=== PATIENT | male | born 1980 | race Two or more races ===

== ENCOUNTER 2020-08-16 11:54 | Emergency (ER) | payer MEDICAID, SELFPAY ==
[2020-08-16 14:09] VITALS: BP 141/72; PULSE 97; RESP 18; TEMP 37.7; O2SAT 98; BMI 23.3
--- NOTE | 2020-08-16 14:29 | ED_ITS ---
HPI - URI/Sore Throat General Chief Complaint: Upper Respiratory Symptoms Stated Complaint: CONGESTION Time Seen by Provider: 08/16/20 14:28 Source: patient Mode of arrival: ambulatory Limitations: no limitations History of Present Illness MD elicited complaint: rhinorrhea and nasal congestion Onset (ago): day(s) (Since last night) Severity: mild Description of mucous: watery Relieving factors: nothing Associated symptoms: denies other symptoms Treatments prior to arrival: none Related Data Allergies Allergy/AdvReac Type Severity Reaction Status Date / Time No Known Allergies Allergy Unverified 06/03/20 19:12 Review of Systems Review of Systems: Constitutional: No Weight loss, No Fever, No Chills, No Night Sweats, No Fatigue, No Malaise ENT/Mouth: No Hearing loss, No Ear Pain, + Nasal Congestion, No Sinus Pain, No Hoarseness, No sore throat, + Rhinorrhea, No Swallowing Difficulty Eyes: No Eye Pain, No Swelling, No Redness, No Foreign Body, No Discharge, No Vision Changes Cardiovascular: No Chest Pain, No SOB, No Dyspnea on Exertion, No Orthopnea, No Edema, No Palpitations Respiratory: No Cough, No Sputum, No Wheezing, No Smoke Exposure, No Dyspnea Gastrointestinal: No Nausea, No Vomiting, No Diarrhea, No Constipation, No abdominal Pain, No Hematochezia, No Melena Genitourinary: No Flank Pain, No Urinary Flow Changes, No Hesitancy Musculoskeletal: No joint pain, No Myalgias, No Joint Swelling Skin: No Skin Lesions, No rash Neuro: No Dizziness, No Headache Psych: No Social Issues Heme/Lymph: No Bruising, No Bleeding,No Lymphadenopathy Endocrine: No Polyuria, No Polydipsia, No Temperature Intolerance Yes all other systems are reviewed and are negative [facility] Social History Social History Advance Directives: No Advance Directives Information Provided: Yes Physical Exam Vital Signs: Vital Signs: Last Vital Signs Temp 99.8 F 08/16/20 14:09 Pulse 97 08/16/20 14:09 Resp 18 08/16/20 14:09 BP 141/72 H 08/16/20 14:09 Pulse Ox 98 08/16/20 14:09 Body Mass Index 23.3 Reviewed Const: General: cooperative and healthy appearing; No acute distress or intoxicated appearing Nutritional Appearance: average body habitus Orientation/consciousness: patient oriented x3 HENMT: Head: Yes normal to inspection Ears: hearing grossly normal bilaterally General nose exam: Nasal discharge present clear, no epistaxis and no nasal polyps Eyes: General: appearance normal, both eyes and all related structures Visual Greenberg: normal visual greenberg by confrontation Neck: Neck: Yes normal visual inspection and No tender Thyroid: Thyroid normal Chest: Chest palpation & inspection: normal inspection of the chest Resp: Effort & Inspection: normal respiratory effort Cardio: Jugular venous distension: no JVD Skin: General skin exam: no rashes or lesions noted Neuro: General: patient oriented x3 Extrem: General: Yes normal to inspection Discharge Plan Discharge Clinical Impression: Upper respiratory infection Patient Disposition: Home, Self-Care Instructions: Upper Respiratory Infection (ED) Additional Instructions: Your COVID test is pending and may take up to 3-5 days results will call you with results Practice social isolation/distance [id number] nasal decongestants as reviewed Push fluids Return if any concerns or worsening symptoms otherwise follow up as instructed Thank you Referrals: [facility] [Primary Care Provider] - 1 week (Phone visit as needed)
== END 2020-08-16 15:05 | disposition home or self-care (01) ==
PROVIDERS: Nurse Practitioner Primary Care; Emergency Provider Internal Medicine
DX: J06.9 Acute upper respiratory infection, unspecified (principal); J34.89 Other specified disorders of nose and nasal sinuses; Z20.828 Contact with and (suspected) exposure to other viral communicable diseases
CPT/HCPCS: 99283; U0003

== ENCOUNTER 2020-11-18 08:05 | Emergency (ER) | payer MEDICAID, OTHER, SELFPAY ==
[2020-11-18 08:10] VITALS: BP 119/68; PULSE 101; RESP 18; TEMP 38; O2SAT 96; BMI 26.9
--- NOTE | 2020-11-18 08:16 | ED.URI ---
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 Mode of arrival: ambulatory Limitations: no limitations History of Present Illness MD elicited complaint: fever, rhinorrhea and nasal congestion Onset (ago): day(s) (3) Consistency: constant Severity: mild Description of mucous: clear Able to tolerate fluids by mouth: Yes Exacerbating factors: nothing Relieving factors: nothing Context: recent travel Associated symptoms: fever, chills, myalgias, headache and rhinorrhea Treatments prior to arrival: none Related Data Allergies Allergy/AdvReac Type Severity Reaction Status Date / Time No Known Allergies Allergy Unverified 06/03/20 19:12 Review of Systems Review of Systems: Constitutional : positive Fever, positive Chills, positive fatigue, positive Malaise ENT/Mouth : no sore throat, positive runny nose Eyes: No Discharge Cardiovascular : No Chest Pain, No SOB Respiratory : No Cough, No Sputum Gastrointestinal : No Nausea, No Vomiting, No Diarrhea Genitourinary : No Dysuria, No Urinary Frequency Musculoskeletal : positive Myalgia Skin : No rash Neuro : No Headache PMFSH Past Medical History Attestation statement: The following information was validated with the patient. Medical History (Updated 11/18/20 @ 09:19 by Felicitas Cabrales DO) Diabetes HTN (hypertension) Social History Social History (Updated 11/18/20 @ 08:33 by Felicitas Cabrales DO) Smoking Status: Never smoker Advance Directives: No Advance Directives Information Provided: No Physical Exam Vital Signs: Vital Signs: Last Vital Signs Temp 100.4 F 11/18/20 08:10 Pulse 101 H 11/18/20 08:10 Resp 18 11/18/20 08:10 BP 119/68 11/18/20 08:10 Pulse Ox 96 11/18/20 08:10 Body Mass Index 26.9 Appearance: Alert. Oriented X3. No acute distress. Eyes: Pupils equal, round and reactive to light. ENT: Pharynx normal. Active sneezing Neck: Normal inspection. Neck supple. CVS: Normal heart rate and rhythm. Pulses normal. Respiratory: No respiratory distress. Breath sounds normal. Abdomen: Soft and nontender. Skin: Skin warm and dry. Normal skin color. Normal skin turgor. Extremities: No lower extremity edema. No calf ttp Neuro: Oriented X 3. No motor deficit. No sensory deficit. Course Course Course Narrative: patient was called and notified of his POS result MDM - URI/Sore Throat MDM Narrative Medical decision making narrative: 40 yo male with viral like illness, clear lungs, no hypoxia - not toxic, will obtain COVID swab and give tylenol, discussed reasons to return Lab Data Labs: Lab Results 11/18/20 Range/Units 08:23 Coronavirus (PCR) POSITIVE A (Negative) Influenza Type A (PCR) NEGATIVE (Negative) Influenza Type B (PCR) NEGATIVE (Negative) RSV RNA Qual (PCR) NEGATIVE (Negative) Discharge Plan Discharge Clinical Impression: Viral syndrome, COVID-19 Patient Disposition: Home, Self-Care Instructions: Viral Syndrome (ED), COVID-19 (Coronavirus Disease 2019) (ED) Additional Instructions: return to ED for any worsening symptoms or concerns Interventions: ED Discharge Assessment Last Done: 11/18/20 08:36 Discharge Date/Time: 11/18/20 08:36 Print Language: [place]
[2020-11-18] MEDS: Acetaminophen 325 MG TABLET 650 MG PO (08:21)
[2020-11-18 09:08] LABS: Influenza A PCR NEGATIVE (Negative); Influenza B PCR NEGATIVE (Negative); Resp Syncy Virus RNA Qual PCR NEGATIVE (Negative)
[2020-11-18 09:16] LABS: SARS COV2 PCR INHOUSE POSITIVE (Negative)
== END 2020-11-18 08:36 | disposition home or self-care (01) ==
PROVIDERS: Emergency Provider Emergency Medicine
DX: U07.1 COVID-19 (principal); R51.9 Headache, unspecified; R50.9 Fever, unspecified; E11.9 Type 2 diabetes mellitus without complications; I10 Essential (primary) hypertension
CPT/HCPCS: 0241U; 36415; 99283

== ENCOUNTER 2021-01-04 08:50 | Emergency (ER) | payer OTHER, MEDICAID, SELFPAY ==
--- NOTE | 2021-01-04 09:24 | ED.HA ---
HPI - Headache General Chief Complaint: Headache Stated Complaint: HEADACHE Time Seen by Provider: 01/04/21 09:24 Source: patient Mode of arrival: ambulatory Limitations: language barrier History of Present Illness HPI Narrative: Patient feels hot and is worried that he has a fever. 2 months ago he tested positive for COVID. Since he had COVID he has had headaches everyday. Patient with increased headache due to allergies MD elicited complaint: headache Onset (ago): month(s) Onset description: gradually and while at rest Location: frontal Severity: mild Quality & Timing: aching Exacerbating factors: other (seasonal allergies) Related Data Previous Rx's Medication Instructions Recorded fluticasone propionate [Flonase 1 spray INTRANASAL BID #16 g 01/04/21 Allergy Relief] naproxen [Naprosyn] 500 mg PO BID #20 tab 01/04/21 Allergies Allergy/AdvReac Type Severity Reaction Status Date / Time No Known Allergies Allergy Verified 01/04/21 09:44 Review of Systems Constitutional: Constitutional: Reports no additional constitutional complaints Eyes: Eyes: Reports no additional eye complaints ENT: Denies dizziness Cardiovascular: Cardiovascular: Reports no additional cardiovascular complaints Respiratory: Respiratory: Reports as per HPI Gastrointestinal: Gastrointestinal: Reports no additional gastrointestinal complaints Musculoskeletal: Musculoskeletal: Reports no additional musculoskeletal complaints Integumentary/Breasts: Skin/Breast: Denies rash Neurologic: Reports system reviewed and no additional complaints, except as documented, Denies dizziness and Denies Sensory deficit (Neuro) Psychiatric: Psychiatric: Denies anxiety [facility] Past Medical History Medical History Diabetes HTN (hypertension) Social History Social History Smoking Status: Never smoker Advance Directives: No Advance Directives Information Provided: No Physical Exam Const: General: healthy appearing Nutritional Appearance: average body habitus Orientation/consciousness: oriented to person and patient oriented x3 Limitations: no limitations HENMT: Other: both TMs with some fluid and bubbles. Head: Yes normal to inspection Ears: external ears normal General nose exam: Normal external nose present Mouth: Normal oral and palatal mucosa present and oropharynx normal Throat: Yes posterior oropharynx normal Eyes: General: appearance normal, both eyes and all related structures Neck: Other: supple Neck: Yes normal visual inspection Chest: Chest palpation & inspection: normal inspection of the chest Resp: Auscultation: clear to auscultation bilaterally Cardio: Jugular venous distension: no JVD Rate: regular rate Rhythm: regular rhythm Heart sounds: S1 normal heart sound present and S2 normal heart sound present GI: Inspection: Yes normal to inspection Palpation (GI): Soft to palpation, nontender and No hepatosplenomegaly present Auscultation: normal bowel sounds : General: Yes no CVA tenderness Back/Spine/Pelvis: Back: no CVA tenderness Skin: General skin exam: no rashes or lesions noted Neuro: General: oriented to person and patient oriented x3 Cranial nerves: Yes CN's II-XII intact bilaterally Motor exam (neuro): 5/5 motor strength present throughout Sensory Exam: No Sensory deficit (Neuro) Extrem: General: Yes normal to inspection Psych: Appearance: grossly normal MDM - Headache MDM Narrative Medical decision making narrative: patient with allergic sinusitis causing him to have headaches will start on flonase and nsaids Differential Diagnosis Differential diagnosis: Likely sinusitis Discharge Plan Discharge Clinical Impression: Acute seasonal allergic rhinitis Sinusitis Qualifiers: Sinusitis location: frontal Chronicity: unspecified Qualified Code(s): J32.1 - Chronic frontal sinusitis Patient Disposition: Home, Self-Care Instructions: Sinusitis (ED), Allergic Rhinitis (ED) Prescriptions: New naproxen [Naprosyn] 500 mg tablet 500 mg PO BID Qty: 20 RF: 0 fluticasone propionate [Flonase Allergy Relief] 50 mcg/actuation spray,suspension 1 spray intranasal BID Qty: 16 RF: 0 Referrals: Armin Jensen MD [Primary Care Provider] - 1 week
[2021-01-04 09:36] VITALS: BP 138/90; PULSE 84; RESP 16; TEMP 36.8; O2SAT 98; BMI 25.8
[2021-01-04 09:51] LABS: Glucose, Whole Blood 222 mg/dL (60-115)
--- NOTE | 2021-01-04 09:56 | PC.NURSE ---
Pt's poc 222. MD aware. Pt educated on diet and medication compliance for control of blood sugars. Pt educated on flonaise and naprosen spray by MD with historical interpreter.
== END 2021-01-04 09:58 | disposition home or self-care (01) ==
PROVIDERS: Emergency Provider Emergency Medicine; PCP Internal Medicine
DX: J30.2 Other seasonal allergic rhinitis (principal); J32.1 Chronic frontal sinusitis; R51.9 Headache, unspecified; E11.9 Type 2 diabetes mellitus without complications; I10 Essential (primary) hypertension
CPT/HCPCS: 82947; 99283

== ENCOUNTER 2021-12-10 12:03 | Emergency (ER) | payer OTHER, SELFPAY ==
[2021-12-10 12:09] VITALS: BP 132/85; PULSE 85; RESP 19; TEMP 36.9; O2SAT 99; BMI 27.4
--- NOTE | 2021-12-10 12:30 | ED.URI ---
HPI - URI/Sore Throat General Chief Complaint: Fever Stated Complaint: Headache/fever Time Seen by Provider: 12/10/21 12:21 Source: patient Mode of arrival: ambulatory Limitations: no limitations History of Present Illness HPI Narrative: 41 yo male presents to the ER with 2 days of fevers, sore throat, nasal congestion and dry cough. He denies any sick contacts. He has been eating and drinking normally. He states he has had nasal congestion with yellow discharge, dry cough and subjective fevers. He recently had COVID. He is not vaccinated for the Flu. He denies any chest pain, SOB, difficutly breathing, N/V/D or abdominal pain. MD elicited complaint: fever, cough, sore throat and nasal congestion Onset (ago): day(s) (2) Consistency: constant Severity: moderate Description of mucous: clear, watery and yellow Able to tolerate fluids by mouth: Yes Exacerbating factors: nothing Relieving factors: nothing Associated symptoms: fever, chills, rhinorrhea, nasal congestion, sore throat and cough Treatments prior to arrival: none Related Data Previous Rx's Medication Instructions Recorded fluticasone propionate 50 1 spray INTRANASAL BID #16 g 01/04/21 mcg/actuation nasal spray,suspension (Flonase Allergy Relief) naproxen 500 mg tablet (Naprosyn) 500 mg PO BID #20 tab 01/04/21 Allergies Allergy/AdvReac Type Severity Reaction Status Date / Time No Known Allergies Allergy Verified 01/04/21 09:44 Review of Systems Review of Systems: Constitutional: + Fever, No Chills ENT/Mouth: + sore throat, No Rhinorrhea, No Swallowing Difficulty Eyes: No Eye Pain, No Swelling, No Redness Cardiovascular: No Chest Pain, No SOB, No Orthopnea, No Edema Respiratory: + Cough, No Sputum, No Wheezing, No dyspnea Gastrointestinal: No Nausea, No Vomiting, No Diarrhea, No abdominal Pain Musculoskeletal: No joint pain, No Myalgias Skin: No Skin Lesions, No rash Neuro: No Weakness, No Dizziness, No Headache Heme/Lymph: No Bruising, No Lymphadenopathy PMFSH Past Medical History Medical History Diabetes HTN (hypertension) Social History Social History Advance Directives: No Advance Directives Information Provided: No Physical Exam Vital Signs: Vital Signs: Last Vital Signs Temp 98.5 F 12/10/21 12:09 Pulse 85 12/10/21 12:09 Resp 19 12/10/21 12:09 BP 132/85 12/10/21 12:09 Pulse Ox 99 12/10/21 12:09 BMI result Body Mass Index 27.4 Appearance: Alert. Oriented X3. No acute distress. Eyes: Pupils equal, round and reactive to light. Sclera with injection bilaterally ENT: Pharynx With moist mucous membranes. Bilateral tonsillar enlargement and erythema without exudate. Uvula midline. Normal voice. Handling secretions normally. Neck: Normal inspection. Neck supple. No lymphadenopathy CVS: Normal heart rate and rhythm. Pulses normal. Respiratory: No respiratory distress. Breath sounds normal. Abdomen: Soft and nontender. +BS x4 Skin: Skin warm and dry. Normal skin color. Normal skin turgor. No rashes. Extremities: Normal inspection x4. Neuro: Oriented X 3. Grossly normal, nonfocal. Course Course Course Narrative: 41-year-old male presenting to the ER with nasal congestion, subjective fevers and sore throat along with dry cough for the last 2 days. His vital signs are normal. he is negative for influenza and strep throat. He recently had COVID-19. His symptoms are most likely due to another viral etiology - he is stable for discharge with supportive care. Encouraged follow-up with his primary care doctor as needed. Stable for DC home MDM - URI/Sore Throat Lab Data Labs: Lab Results 12/10/21 12/10/21 Range/Units 12:28 12:28 Influenza Type A (LEVAR) Negative (Negative) Influenza Type B (LEVAR) Negative (Negative) Influenza A & B Note See Note S. pyogenes GrpA LEVAR Negative (Negative) Discharge Plan Discharge Clinical Impression: Viral infection Patient Disposition: Home, Self-Care Instructions: Viral Syndrome (ED) Additional Instructions: You were negative for Flu and Strep throat. Your symptoms are due to a viral infection. Rest, drink plenty of fluids. Take over the counter cold and flu medication as needed for your symptoms. Follow up with your doctor next week. If you develop new or worsening symptoms call 911 or come back to the ER for further evaluation. Prescriptions: No Action naproxen [Naprosyn] 500 mg tablet 500 mg PO BID Qty: 20 0RF fluticasone propionate [Flonase Allergy Relief] 50 mcg/actuation spray,suspension 1 spray intranasal BID Qty: 16 0RF Rx Instructions: administer into each nostril Stand Alone Forms: Work/School Release Print Language: Citizen Of [place]
[2021-12-10 12:44] LABS: Strep A Nucleic Acid Negative (Negative)
[2021-12-10 13:16] LABS: IDNOW Serial# 08D9AD1C; Influenza A Negative (Negative); Influenza B2 Negative (Negative)
== END 2021-12-10 13:45 | disposition home or self-care (01) ==
PROVIDERS: Physician Assistant; Emergency Provider Emergency Medicine
DX: B34.9 Viral infection, unspecified (principal); J02.9 Acute pharyngitis, unspecified; R50.9 Fever, unspecified; E11.9 Type 2 diabetes mellitus without complications; I10 Essential (primary) hypertension
CPT/HCPCS: 87502; 87651; 99283

== ENCOUNTER 2022-04-06 11:49 | Emergency (ER) | payer OTHER, SELFPAY ==
--- NOTE | ~2022-04-06 | XR_ITS ---
EXAMINATION: XR CHEST CLINICAL INFORMATION: Chest pain COMPARISON: 05/25/2018 TECHNIQUE: 2 views of the chest were obtained. FINDINGS: No significant abnormality is noted involving the heart, lungs, mediastinum, bony thorax or soft tissues. Some minimal scarring or atelectasis is again seen at the left lung base. XR/XR chest 2V IMPRESSION: No acute intrathoracic disease.
--- NOTE | 2022-04-06 11:55 | ECG_ITS ---
Test Reason : CHEST PAIN Blood Pressure : / mmHG Vent. Rate : 077 BPM Atrial Rate : 077 BPM P-R Int : 192 ms QRS Dur : 084 ms QT Int : 364 ms P-R-T Axes : 055 049 029 degrees QTc Int : 411 ms Normal sinus rhythm Normal ECG No previous ECGs available Referred By: Generic ED Physician Electronically Signed By:Richar Samaniego
[2022-04-06 12:08] LABS: MANUAL DIFF FLAG NO
[2022-04-06 12:13] LABS: Basophils Percent Auto 0.7 % (0-2); Eosinophils Absolute Auto 0.6 X10*3/uL (0.0-0.4); Eosinophils Percent Auto 10.3 % (0-4); Hematocrit 41.2 % (42.0-52.0); Hemoglobin 14.7 g/dl (14.0-18.0); Imm Gran Abs Auto 0.01 X10*3/uL (0.00-0.03); Imm Gran Pct Auto 0.2 % (0.0-0.4); Lymphocytes Absolute Auto 2.2 X10*3/uL (1.2-4.9); Lymphocytes Percent Auto 38.1 % (20-40); Mean Corpuscular HGB Conc 35.7 g/dl (31.0-36.0); Mean Corpuscular Hemoglobin 31.9 pg (27.0-33.0); Mean Corpuscular Volume 89.4 fL (80.0-98.0); Mean Platelet Volume 10.5 fL (9.4-12.4); Monocytes Absolute Auto 0.8 X10*3/uL (0.1-1.2); Monocytes Percent Auto 13.8 % (2-11); Neutrophils Absolute Auto 2.1 x10*3/uL (2.0-8.3); Neutrophils Percent Auto 36.9 % (45-73); Platelet Count 177 X10*3/uL (160-400); Red Blood Count 4.61 X10*6/uL (4.60-5.80); Red Cell Distribution Width 12.9 % (11.0-16.0); White Blood Count 5.6 X10*3/uL (4.8-10.8)
[2022-04-06 12:23] LABS: COVID-19 Test Positive (Negative); IDNOW Serial# 9DD0AD1C
[2022-04-06 12:28] LABS: Alanine Aminotransferase 69 U/L (0-40); Albumin Level 4.5 g/dL (3.5-5.0); Alkaline Phosphatase 49 U/L (39-117); Anion Gap 14 (12-20); Aspartate Amino Transferase 34 U/L (5-37); Bilirubin Total 0.8 mg/dL (0.0-1.0); Blood Urea Nitrogen 11 mg/dL (9-16); Calcium 9.2 mg/dL (8.4-10.2); Carbon Dioxide 26 mmol/L (22-29); Chloride 98 mmol/L (96-108); Estimated Glomerular Filt Rate > 60; Glucose Random 341 mg/dL (60-115); Potassium 3.6 mmol/L (3.3-5.1); Sodium 134 mmol/L (135-145); Total Protein 7.7 g/dL (6.5-8.0)
[2022-04-06 12:32] LABS: Troponin-I High Sensitivity < 3.5 ng/L (<3.5-35.0)
[2022-04-06 13:59] VITALS: BP 149/98; PULSE 72; RESP 18; TEMP 36.8; O2SAT 98; BMI 25.8
--- NOTE | 2022-04-06 14:31 | ED_ITS ---
HPI - URI/Sore Throat General Chief Complaint: Upper Respiratory Symptoms Stated Complaint: severe chest pain, congestion Time Seen by Provider: 04/06/22 14:14 Source: patient Mode of arrival: ambulatory History of Present Illness HPI Narrative: 42-year-old male with past medical history of diabetes, hypertension presenting to the ED complaining of myalgias, rhinorrhea, nasal congestion, sore throat, dry cough, SOB, mild CP worse when coughing and x 4-5 days. Denies known sick contacts, fever, recent travel, abdominal pain, nausea/vomiting, ear pain MD elicited complaint: cough, sore throat, rhinorrhea and nasal congestion Onset (ago): day(s) Related Data Previous Rx's Medication Instructions Recorded fluticasone propionate 50 1 spray intranasal BID #16 grams 01/04/21 mcg/actuation nasal spray,suspension (Flonase Allergy Relief) naproxen 500 mg tablet (Naprosyn) 500 mg PO BID #20 tabs 01/04/21 Allergies Allergy/AdvReac Type Severity Reaction Status Date / Time No Known Allergies Allergy Verified 04/06/22 13:58 Review of Systems Review of Systems: Constitutional: No Fever, No Chills ENT/Mouth: No Ear Pain, + Nasal Congestion, No Sinus Pain, No Hoarseness, + sore throat, + Rhinorrhea, No Swallowing Difficulty Cardiovascular: + Chest Pain, + SOB Respiratory: +Cough, No Sputum, No Wheezing Gastrointestinal: No Nausea, No Vomiting, No Diarrhea, No Constipation, No Abdominal pain Genitourinary: No Dysuria, No Urinary Frequency, No Hematuria, No Flank Pain Musculoskeletal: No joint pain, No Myalgias, No Joint Swelling Skin: No Skin Lesions, No rash Neuro: No Weakness, No Numbness, No Paresthesias Yes all other systems are reviewed and are negative Constitutional: Constitutional: Reports as per [facility] Past Medical History Attestation statement: The following information was validated with the patient. Medical History Diabetes HTN (hypertension) Social History Social History Advance Directives: No Advance Directives Information Provided: Yes Physical Exam Vital Signs: Vital Signs: Last Vital Signs Temp 98.3 F 04/06/22 13:59 Pulse 72 04/06/22 13:59 Resp 18 04/06/22 13:59 BP 149/98 H 04/06/22 13:59 Pulse Ox 98 04/06/22 13:59 O2 Del Method 04/06/22 13:59 BMI result Body Mass Index 25.8 Const: General: cooperative, healthy appearing and no acute distress Orientation/consciousness: patient oriented x3 Limitations: no limitations HEENT: Head: Yes normal to inspection and Yes atraumatic Ears: hearing grossly normal bilaterally, external ears normal, TM's normal bilaterally and mastoids normal General nose exam: Normal external nose present and Nasal discharge present purulent Face and sinus: Yes normal facial exam Throat: Yes posterior oropharynx normal, Yes tonsils normal, Yes uvula midline, No uvula laterally displaced and No uvular edema Eyes: General: appearance normal, both eyes and all related structures EOM: EOMs intact bilaterally Neck: Neck: Yes normal visual inspection, Yes no lymphadenopathy and Yes no meningeal signs Resp: Effort & Inspection: normal respiratory effort and no respiratory distress Auscultation: clear to auscultation bilaterally, no crackles, no rales, no rhonchi and no wheezes Cardio: Rate: regular rate Heart sounds: S1 normal heart sound present and S2 normal heart sound present GI: Inspection: Yes normal to inspection Skin: Rashes: no rashes Wounds: no wounds Neuro: General: patient oriented x3, tone normal and no meningeal signs Gait exam (Neuro): Normal gait present Extrem: General: Yes normal to inspection Course Course Course Narrative: -labs unremarkable. Troponin negative. -COVID-19 positive XR chest 2V IMPRESSION: No acute intrathoracic disease. Results discussed with patient with buckle gluer. Offered referral for monoclonal antibodies and Paxlovid if patient qualifies which he was not agreeable to either. discussed worrisome signs and symptoms and strict return precautions, and when to return to the emergency department. They verbalized understanding and feel safe for discharge at this time. MDM - URI/Sore Throat MDM Narrative Medical decision making narrative: 42-year-old male with past medical history of diabetes, hypertension presenting to the ED complaining of myalgias, rhinorrhea, nasal congestion, sore throat, dry cough, SOB, mild CP worse when coughing and x 4-5 days. On exam vital signs stable, NAD/nontoxic appearing, lungs CTA, oropharynx WNL. Concern for viral illness including COVID-19 versus influenza versus bronchitis. Rule out pneumonia. Symptoms atypical for ACS/PE Plan: Labs ordered in triage. Chest x-ray, COVID-19 testing Differential Diagnosis Differential diagnosis: Likely upper respiratory infection, viral infection, bronchitis and influenza Medical Records Attestation: I reviewed the patient's medical records. Lab Data Attestation: I reviewed the patient's lab results. Result diagrams: 04/06/22 12:03 04/06/22 12:03 Labs: Lab Results 04/06/22 04/06/22 04/06/22 Range/Units 12:03 12:03 12:03 WBC 5.6 (4.8-10.8) X10*3/uL RBC 4.61 (4.60-5.80) X10*6/uL Hgb 14.7 (14.0-18.0) g/dl Hct 41.2 L (42.0-52.0) % MCV 89.4 (80.0-98.0) fL MCH 31.9 (27.0-33.0) pg MCHC 35.7 (31.0-36.0) g/dl RDW 12.9 (11.0-16.0) % Plt Count 177 (160-400) X10*3/uL MPV 10.5 (9.4-12.4) fL Immature Gran % (Auto) 0.2 (0.0-0.4) % Neut % (Auto) 36.9 L (45-73) % Lymph % (Auto) 38.1 (20-40) % [place]eton % (Auto) 13.8 H (2-11) % Eos % (Auto) 10.3 H (0-4) % Baso % (Auto) 0.7 (0-2) % Lymph # (Auto) 2.2 (1.2-4.9) X10*3/uL [place] # (Auto) 0.8 (0.1-1.2) X10*3/uL Eos # (Auto) 0.6 H (0.0-0.4) X10*3/uL Baso # (Auto) 0.0 (0.0-0.2) X10*3/uL Abs Immat Gran (auto) 0.01 (0.00-0.03) X10*3/uL Absolute Neuts (auto) 2.1 (2.0-8.3) x10*3/uL Absolute Nucleated RBC 0.000 (0.0-0.012) X10*3/uL Nucleated RBC % (auto) 0.0 (0.0-0.2) /100WBC Sodium (135-145) mmol/L Potassium (3.3-5.1) mmol/L Chloride (96-108) mmol/L Carbon Dioxide (22-29) mmol/L Anion Gap (12-20) BUN (9-16) mg/dL Creatinine (0.5-1.4) mg/dL Estim Creat Clear Calc Estimated GFR Random Glucose (60-115) mg/dL Calcium (8.4-10.2) mg/dL Total Bilirubin (0.0-1.0) mg/dL AST (5-37) U/L ALT (0-40) U/L Alkaline Phosphatase (39-117) U/L Troponin I High Sens < 3.5 (<3.5-35.0) ng/L Total Protein (6.5-8.0) g/dL Albumin (3.5-5.0) g/dL COVID-19 (HAL) Positive A (Negative) COVID-19 Clin Com See Note 04/06/22 Range/Units 12:03 WBC (4.8-10.8) X10*3/uL RBC (4.60-5.80) X10*6/uL Hgb (14.0-18.0) g/dl Hct (42.0-52.0) % MCV (80.0-98.0) fL MCH (27.0-33.0) pg MCHC (31.0-36.0) g/dl RDW (11.0-16.0) % Plt Count (160-400) X10*3/uL MPV (9.4-12.4) fL Immature Gran % (Auto) (0.0-0.4) % Neut % (Auto) (45-73) % Lymph % (Auto) (20-40) % [place] % (Auto) (2-11) % Eos % (Auto) (0-4) % Baso % (Auto) (0-2) % Lymph # (Auto) (1.2-4.9) X10*3/uL [place] # (Auto) (0.1-1.2) X10*3/uL Eos # (Auto) (0.0-0.4) X10*3/uL Baso # (Auto) (0.0-0.2) X10*3/uL Abs Immat Gran (auto) (0.00-0.03) X10*3/uL Absolute Neuts (auto) (2.0-8.3) x10*3/uL Absolute Nucleated RBC (0.0-0.012) X10*3/uL Nucleated RBC % (auto) (0.0-0.2) /100WBC Sodium 134 L (135-145) mmol/L Potassium 3.6 (3.3-5.1) mmol/L Chloride 98 (96-108) mmol/L Carbon Dioxide 26 (22-29) mmol/L Anion Gap 14 (12-20) BUN 11 (9-16) mg/dL Creatinine 1.15 (0.5-1.4) mg/dL Estim Creat Clear Calc TNP Estimated GFR > 60 Random Glucose 341 H (60-115) mg/dL Calcium 9.2 (8.4-10.2) mg/dL Total Bilirubin 0.8 (0.0-1.0) mg/dL AST 34 (5-37) U/L ALT 69 H (0-40) U/L Alkaline Phosphatase 49 (39-117) U/L Troponin I High Sens (<3.5-35.0) ng/L Total Protein 7.7 (6.5-8.0) g/dL Albumin 4.5 (3.5-5.0) g/dL COVID-19 (HAL) (Negative) COVID-19 Clin Com Discharge Plan Discharge Clinical Impression: COVID-19 Patient Disposition: Home, Self-Care Instructions: COVID-19 (Coronavirus Disease 2019) (ED) Additional Instructions: At this time you will be okay for discharge. Please self isolate for 10-14 days. Do not expose yourself to others. You may not go to work or school. Please continue to follow cold instructions and wash your hands frequently. You may take Tylenol / Motrin as directed on the bottle for pain or fever. If you have constant or persistent shortness of breath, fever unresolved with medications, chest pain, or your unable to eat or drink please return to the ED CDC Guidelines for home isolation: - Stay away from others - WEAR A MASK if you are sick AND STAY HOME - Cover your mouth and nose with a tissue when you cough or sneeze. Dispose of tissues in a lined trash can and wash your hands immediately with soap and water for at least 20 seconds. If soap and water are not available, clean hands with alcohol-based hand manufacturing team member that contains at least 60% alcohol. - Clean your hands often with soap and water for at least 20 seconds - Avoid touching your eyes, nose and mouth with unwashed hands - Do not share dishes, drinking glasses, cups, eating utensils, towels, or bedding with other people in your home. After using these items, wash them thoroughly with soap and water or put in the process development technician. - Clean high-touch surfaces in your isolation area ( sick room and bathroom) every day; let a caregiver clean and disinfect high-touch surfaces in other areas of the home. Clean the area or item with soap and water or another detergent if it is dirty. Then, use a household disinfectant. - Limit contact with pets and animals: If you must care for a pet, wash your hands before and after interacting with them) En yohan momento estar? chriss para el marino. A?slese luciana 10-14 d?as. No te expongas a los dem?s. Es posible que no vaya al trabajo ni a la escuela. Contin?e siguiendo las instrucciones en fr?o y l?vese las kelsey con frecuencia. Puede abby Tylenol/Motrin ester se indica en el frasco para el dolor o la fiebre. Si tiene dificultad para respirar steven o persistente, fiebre que no se resuelve con medicamentos, dolor en el pecho o no puede comer o beber, regrese al servicio de urgencias. Pautas de los CDC para el aislamiento en el hogar: - Mant?ngase alejado de los dem?s. - USE YAYA MASCARILLA si est? enfermo Y QU?DESE EN CASA - C?brase la boca y la nariz con un pa?uelo desechable al toser o estornudar. Deseche los pa?uelos en un bote de basura forrado y l?vese las kelsey inmediatamente con agua y jab?n luciana al menos 20 segundos. Si no hay agua y jab?n disponibles, l?vese las kelsey con un desinfectante para kelsey a base de alcohol que contenga al menos un 60 % de alcohol. - L?vese las kelsey con frecuencia con agua y jab?n luciana al menos 20 segundos. - Evite tocarse los ojos, la nariz y la boca con las kelsey sin chemo - No comparta platos, vasos, tazas, utensilios para comer, toallas o ropa de cama con otras personas en bryant hogar. Despu?s de usar estos art?culos, l?velos chriss con agua y jab?n o col?quelos en el [place]. - Limpie las superficies de alto contacto en bryant ?bharti de aislamiento ( cuarto de enfermos y ba?o) todos los d?as; permita que un cuidador limpie y desinfecte las superficies de alto contacto en otras ?reas del hogar. Limpie el ?bharti o art?culo con agua y jab?n u otro detergente si est? sucio. Luego, use un desinfectante dom?stico. - Limite el contacto con mascotas y animales: si debe cuidar yaya mascota, l?vese las kelsey antes y despu?s de interactuar con ellos) Prescriptions: No Action naproxen [Naprosyn] 500 mg tablet 500 mg PO BID Qty: 20 0RF fluticasone propionate [Flonase Allergy Relief] 50 mcg/actuation spray,suspension 1 spray intranasal BID Qty: 16 0RF Rx Instructions: administer into each nostril Referrals: Physician,Laura J [Primary Care Provider] - Interventions: ED Discharge Assessment Last Done: 04/06/22 15:23 Discharge Date/Time: 04/06/22 15:24 Print Language: Austrian
== END 2022-04-06 15:24 | disposition home or self-care (01) ==
PROVIDERS: Emergency Provider Emergency Medicine Emergency Medical Services
DX: U07.1 COVID-19 (principal); E11.9 Type 2 diabetes mellitus without complications; I10 Essential (primary) hypertension
CPT/HCPCS: 36415; 71046; 80053; 84484; 85025; 87635; 93005; 99283

== ENCOUNTER 2023-02-08 15:57 | Emergency (ER) | payer MEDICAID, SELFPAY ==
[2023-02-08 16:16] VITALS: BP 141/97; PULSE 79; RESP 18; TEMP 36.8; O2SAT 99; BMI 25.8
--- NOTE | 2023-02-08 16:20 | ED_ITS ---
HPI - URI/Sore Throat General Chief Complaint: Upper Respiratory Symptoms Stated Complaint: sore throat, cough,headache Time Seen by Provider: 02/08/23 18:55 Source: patient and mystery shopper Mode of arrival: ambulatory Limitations: language barrier History of Present Illness HPI Narrative: 42 yo male with history of DM, HTN here with congestion, cough, sore throat, body aches, subjective fever, headache x 4-5 days. No shortness of breath, chest pain, vomiting, diarrhea, skin rash, neck pain or stiffness. Denies sick contact. Denies recent travel. has received 2 covid vaccinations Related Data Previous Rx's Medication Instructions Recorded fluticasone propionate 50 1 spray intranasal BID #16 grams 01/04/21 mcg/actuation nasal spray,suspension (Flonase Allergy Relief) naproxen 500 mg tablet (Naprosyn) 500 mg PO BID #20 tabs 01/04/21 Allergies Allergy/AdvReac Type Severity Reaction Status Date / Time No Known Allergies Allergy Verified 04/06/22 13:58 Review of Systems Review of Systems: Yes all other systems are reviewed and are negative Constitutional: Constitutional: Reports no additional constitutional complaints, Reports body ache(s), Denies chills, Reports fever(s), Reports headache(s) and Denies weakness Eyes: Eyes: Reports no additional eye complaints and Denies change in vision ENT: Reports system reviewed and no additional complaints, except as documented, Denies dizziness, Reports headache(s), Reports nasal congestion, Denies nasal discharge, Denies neck pain and Reports sore throat Cardiovascular: Cardiovascular: Reports no additional cardiovascular complaints, Denies chest pain, Denies leg edema and Denies dyspnea Respiratory: Respiratory: Reports no additional respiratory complaints, Reports cough and Denies dyspnea Gastrointestinal: Gastrointestinal: Reports no additional gastrointestinal complaints, Denies abdominal pain, Denies diarrhea, Denies nausea and Denies vomiting Genitourinary: Genitourinary: Denies urinary incontinence Musculoskeletal: Musculoskeletal: Reports no additional musculoskeletal complaints, Denies back pain, Denies arthralgias, Denies joint swelling, Denies neck pain, Denies numbness and Denies tingling Integumentary/Breasts: Skin/Breast: Reports system reviewed and no additional complaints, except as docu and Denies rash Neurologic: Reports system reviewed and no additional complaints, except as documented, Denies Abnormal speech present, Denies dizziness, Reports headache(s), Denies numbness, Denies tingling and Denies weakness PMFSH Past Medical History Attestation statement: The following information was validated with the patient. Source: old records reviewed and nursing notes reviewed Medical History Diabetes HTN (hypertension) Social History Social History Advance Directives: No Advance Directives Information Provided: No Physical Exam Vital Signs: Vital Signs: Last Vital Signs Temp 98.3 F 02/08/23 16:16 Pulse 79 02/08/23 16:16 Resp 18 02/08/23 16:16 BP 141/97 H 02/08/23 16:16 Pulse Ox 99 02/08/23 16:16 O2 Del Method Room Air 02/08/23 16:16 BMI result Body Mass Index 25.8 Const: General: cooperative, healthy appearing, comfortable and no acute distress Orientation/consciousness: patient oriented x3 Limitations: no limitations HEENT: Head: Yes normal to inspection Ears: hearing grossly normal bilaterally and TM's normal bilaterally General nose exam: Normal external nose present Face and sinus: Yes normal facial exam Mouth: Normal oral and palatal mucosa present Throat: Yes posterior oropharynx normal, Yes tonsils normal and Yes uvula midline Eyes: General: appearance normal, both eyes and all related structures Pupils: Equal, round and reactive pupils present Neck: Neck: Yes normal visual inspection, Yes full ROM, Yes no lymphadenopathy and Yes no meningeal signs Chest: Chest palpation & inspection: normal inspection of the chest Resp: Effort & Inspection: normal respiratory effort Auscultation: clear to auscultation bilaterally Cardio: Rate: regular rate Rhythm: regular rhythm Peripheral pulses: Peripheral pulses 2+ throughout GI: Inspection: Yes normal to inspection Palpation (GI): Soft to palpation and nontender Auscultation: normal bowel sounds Back/Spine/Pelvis: Thoracic/Lumbar Spine: thoracic and lumbar spine normal to inspection Skin: General skin exam: no rashes or lesions noted Neuro: General: patient oriented x3, no meningeal signs, no focal motor deficits and normal sensation to monofilament Cranial nerves: Yes Equal, round and reactive pupils present Cognition (Neuro): normal cognition Speech: No Abnormal speech present Gait exam (Neuro): Normal gait present Motor exam (neuro): 5/5 motor strength present throughout Extrem: General: Yes normal to inspection, Yes no pedal edema and Yes no calf tenderness Course Course Course Narrative: This is a rapid medical exam. Deferred additional HPI, ROS, PE to primary provider. 42 yo male with history of DM, HTN here with congestion, cough, sore throat, body aches, subjective fever, headache x 3 days. Will obtain testing for covid/rsv/flu, strep VSS Reevaluation(s) Reevaluation #1: Testing all negative. Likely viral syndrome. Reviewed worrisome signs/symptoms and when to seek additional care. Comfortable with plan for discharge home. Medical Decision Making Medical Decision Making MDM Narrative: 42 yo male with history of DM, HTN here with congestion, cough, sore throat, body aches, subjective fever, headache x 4-5 days Exam is benign. VSS WIll send testing for strep, covid, flu, rsv Differential Diagnosis Differential Diagnoses: The differential diagnosis associated with the presentation includes viral syndrome Low concern for strep pharyngitis, influenza, epiglotitis, rpa/aircraft captain, meningitis Lab Data Labs: Lab Results 02/08/23 02/08/23 Range/Units 16:26 16:26 Influenza Type A (PCR) NEGATIVE (Negative) Influenza Type B (PCR) NEGATIVE (Negative) RSV RNA Qual (PCR) NEGATIVE (Negative) SARS-CoV-2 RNA (RT-PCR) NEGATIVE (Negative) S. pyogenes GrpA LEVAR Negative (Negative) Discharge Plan Discharge Clinical Impression: Viral infection Patient Disposition: Home, Self-Care Instructions: Viral Syndrome (ED) Additional Instructions: Motrin or tylenol for pain or fever as needed. Increase fluids, rest. Testing for strep, flu, covid and rsv are negative Motrin o tylenol para el dolor o la fiebre seg?n sea necesario. Aumenta los l?quidos, descansa. Las pruebas de estreptococo, gripe, covid y rsv son negativas Prescriptions: No Action naproxen [Naprosyn] 500 mg tablet 500 mg PO BID Qty: 20 0RF fluticasone propionate [Flonase Allergy Relief] 50 mcg/actuation spray,suspension 1 spray intranasal BID Qty: 16 0RF Rx Instructions: administer into each nostril Referrals: [facility] [Primary Care Provider] - 1 week Interventions: ED Discharge Assessment Last Done: 02/08/23 19:02 Discharge Date/Time: 02/08/23 19:04 Print Language: Grenadian
[2023-02-08 17:30] LABS: IDNOW Serial# 08D9AD1C; Influenza A PCR NEGATIVE (Negative); Influenza B PCR NEGATIVE (Negative); Resp Syncy Virus RNA Qual PCR NEGATIVE (Negative); SARS COV2 PCR INHOUSE NEGATIVE (Negative); Strep A Nucleic Acid Negative (Negative)
== END 2023-02-08 19:04 | disposition home or self-care (01) ==
PROVIDERS: Nurse Practitioner Family; Emergency Provider Emergency Medicine Emergency Medical Services
DX: B34.9 Viral infection, unspecified (principal); J02.8 Acute pharyngitis due to other specified organisms; R05.9 Cough, unspecified; R51.9 Headache, unspecified; Z20.822 Contact with and (suspected) exposure to COVID-19; Z20.828 Contact with and (suspected) exposure to other viral communicable diseases
CPT/HCPCS: 0241U; 87651; 99282; 99283

== ENCOUNTER 2024-06-08 14:01 | Emergency (ER) | payer OTHER, MEDICAID, SELFPAY ==
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
--- NOTE | ~2024-06-08 | XR_ITS ---
EXAMINATION: XR LUMBOSACRAL SPINE CLINICAL INFORMATION: Lower back pain. COMPARISON: None available. TECHNIQUE: Three views of the lumbosacral spine. FINDINGS: Normal vertebral body alignment. The lumbar lordosis is maintained. No acute fracture or subluxation. No loss of vertebral body height. No loss of intervertebral disc height. Tiny anterior endplate osteophytes at L2-L3 and L3-L4. No concerning lytic or blastic osseous lesion. No abnormal soft tissue calcification. XR/XR lumbar spine 2-3V IMPRESSION: Minimal degenerative disc disease at L2-L3 and L3-L4. Electronically signed by: Tramaine Escoto MD 06/08/2024 03:52 PM EDT
[2024-06-08 14:12] VITALS: BP 142/93; PULSE 95; RESP 16; TEMP 36.6; O2SAT 97; BMI 27.0
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
[2024-06-08 18:33] VITALS: BP 142/93; PULSE 95; RESP 16; TEMP 36.6; O2SAT 97
== END 2024-06-08 18:33 | disposition home or self-care (01) ==
PROVIDERS: Emergency Provider Emergency Medicine
DX: S19.9XXA Unspecified injury of neck, initial encounter (principal); S46.002A Unspecified injury of muscle(s) and tendon(s) of the rotator cuff of left shoulder, initial encounter; M54.50 Low back pain, unspecified; R51.9 Headache, unspecified; M54.2 Cervicalgia; V43.52XA Car driver injured in collision with other type car in traffic accident, initial encounter; Y93.89 Activity, other specified; Y92.410 Unspecified street and highway as the place of occurrence of the external cause; Y99.8 Other external cause status
CPT/HCPCS: 70450; 72100; 72125; 99282; 99284